=== PATIENT | female | born 2000 | race Caucasian/White ===

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

== ENCOUNTER → 2020-08-16 | Outpatient (CLI) | payer BC, OTHER | LOC: M LABSMTC 10:52 | PROVIDERS: ATTEND Family Medicine | DX: Z20.828 Contact with and (suspected) exposure to other viral communicable diseases (principal) ==

== ENCOUNTER → 2022-09-21 | Outpatient (REF) | payer BC, OTHER | LOC: M WUC 19:05 | PROVIDERS: ATTEND Physician Assistant | DX: R30.0 Dysuria (principal) ==